=== PATIENT | male | born 1965 | race Two or more races ===

== ENCOUNTER → 2023-12-28 | Outpatient (CLI) | payer MEDICAID, SELFPAY | END | disposition home or self-care (01) | LOC: SWHD 10:20 | PROVIDERS: PCP Physician Assistant; Referring Provider Physician Assistant; Visit Provider Surgery | DX: L97.822 Non-pressure chronic ulcer of other part of left lower leg with fat layer exposed (principal); S98.112D Complete traumatic amputation of left great toe, subsequent encounter; X58.XXXD Exposure to other specified factors, subsequent encounter; E11.51 Type 2 diabetes mellitus with diabetic peripheral angiopathy without gangrene; I10 Essential (primary) hypertension; Z79.84 Long term (current) use of oral hypoglycemic drugs; Z89.412 Acquired absence of left great toe; Z99.3 Dependence on wheelchair; I73.9 Peripheral vascular disease, unspecified | CPT/HCPCS: 11042; A9270 ==

== ENCOUNTER → 2024-01-04 | Outpatient (CLI) | payer MEDICAID, SELFPAY | END | disposition home or self-care (01) | LOC: SWHD 10:41 | PROVIDERS: PCP Physician Assistant; Referring Provider Physician Assistant; Visit Provider Student in an Organized Health Care Education/Training Program | DX: L97.822 Non-pressure chronic ulcer of other part of left lower leg with fat layer exposed (principal); S98.112D Complete traumatic amputation of left great toe, subsequent encounter; X58.XXXD Exposure to other specified factors, subsequent encounter; E11.51 Type 2 diabetes mellitus with diabetic peripheral angiopathy without gangrene; I10 Essential (primary) hypertension; Z79.84 Long term (current) use of oral hypoglycemic drugs; Z89.412 Acquired absence of left great toe; Z99.3 Dependence on wheelchair; I73.9 Peripheral vascular disease, unspecified | CPT/HCPCS: 11042; A9270 ==

== ENCOUNTER → 2024-01-18 | Outpatient (CLI) | payer MEDICAID, SELFPAY | END | disposition home or self-care (01) | LOC: SWHD 10:06 | PROVIDERS: PCP Physician Assistant; Referring Provider Physician Assistant; Visit Provider Surgery | DX: L97.822 Non-pressure chronic ulcer of other part of left lower leg with fat layer exposed (principal); S98.112D Complete traumatic amputation of left great toe, subsequent encounter; X58.XXXD Exposure to other specified factors, subsequent encounter; E11.51 Type 2 diabetes mellitus with diabetic peripheral angiopathy without gangrene; I10 Essential (primary) hypertension; Z79.84 Long term (current) use of oral hypoglycemic drugs; Z89.412 Acquired absence of left great toe; Z99.3 Dependence on wheelchair; I73.9 Peripheral vascular disease, unspecified | CPT/HCPCS: 11042; A9270 ==

== ENCOUNTER → 2024-02-01 | Outpatient (CLI) | payer MEDICAID, SELFPAY | END | disposition home or self-care (01) | LOC: SWHD 08:55 | PROVIDERS: PCP Physician Assistant; Referring Provider Physician Assistant; Visit Provider Surgery | DX: L97.822 Non-pressure chronic ulcer of other part of left lower leg with fat layer exposed (principal); S98.112D Complete traumatic amputation of left great toe, subsequent encounter; X58.XXXD Exposure to other specified factors, subsequent encounter; E11.51 Type 2 diabetes mellitus with diabetic peripheral angiopathy without gangrene; I10 Essential (primary) hypertension; Z79.84 Long term (current) use of oral hypoglycemic drugs; Z89.412 Acquired absence of left great toe; Z99.3 Dependence on wheelchair; I73.9 Peripheral vascular disease, unspecified | CPT/HCPCS: 11042; A9270 ==

== ENCOUNTER → 2024-02-15 | Outpatient (CLI) | payer MEDICAID, SELFPAY | END | disposition home or self-care (01) | LOC: SWHD 08:52 | PROVIDERS: PCP Physician Assistant; Referring Provider Physician Assistant; Visit Provider Student in an Organized Health Care Education/Training Program | DX: L97.822 Non-pressure chronic ulcer of other part of left lower leg with fat layer exposed (principal); S98.112D Complete traumatic amputation of left great toe, subsequent encounter; X58.XXXD Exposure to other specified factors, subsequent encounter; E11.51 Type 2 diabetes mellitus with diabetic peripheral angiopathy without gangrene; I10 Essential (primary) hypertension; Z79.84 Long term (current) use of oral hypoglycemic drugs; Z89.412 Acquired absence of left great toe; Z99.3 Dependence on wheelchair; I73.9 Peripheral vascular disease, unspecified | CPT/HCPCS: 97597; A9270 ==

== ENCOUNTER → 2024-02-29 | Outpatient (CLI) | payer MEDICAID, SELFPAY | END | disposition home or self-care (01) | LOC: SWHD 08:51 | PROVIDERS: PCP Physician Assistant; Referring Provider Physician Assistant; Visit Provider Student in an Organized Health Care Education/Training Program | DX: L97.822 Non-pressure chronic ulcer of other part of left lower leg with fat layer exposed (principal); S98.112D Complete traumatic amputation of left great toe, subsequent encounter; X58.XXXD Exposure to other specified factors, subsequent encounter; E11.51 Type 2 diabetes mellitus with diabetic peripheral angiopathy without gangrene; I10 Essential (primary) hypertension; Z79.84 Long term (current) use of oral hypoglycemic drugs; Z89.412 Acquired absence of left great toe; Z99.3 Dependence on wheelchair; I73.9 Peripheral vascular disease, unspecified | CPT/HCPCS: 11042; 15271; A9270 ==

== ENCOUNTER → 2024-03-07 | Outpatient (CLI) | payer MEDICAID, SELFPAY | END | disposition home or self-care (01) | LOC: SWHD 08:50 | PROVIDERS: PCP Physician Assistant; Referring Provider Physician Assistant; Visit Provider Surgery | DX: L97.822 Non-pressure chronic ulcer of other part of left lower leg with fat layer exposed (principal); S98.112D Complete traumatic amputation of left great toe, subsequent encounter; X58.XXXD Exposure to other specified factors, subsequent encounter; E11.52 Type 2 diabetes mellitus with diabetic peripheral angiopathy with gangrene; I10 Essential (primary) hypertension; Z79.84 Long term (current) use of oral hypoglycemic drugs; Z89.412 Acquired absence of left great toe; Z99.3 Dependence on wheelchair; I73.89 Other specified peripheral vascular diseases | CPT/HCPCS: 99213; A9270; G0463 ==

== ENCOUNTER → 2024-03-14 | Outpatient (CLI) | payer MEDICAID, SELFPAY | END | disposition home or self-care (01) | LOC: SWHD 09:10 | PROVIDERS: PCP Physician Assistant; Referring Provider Physician Assistant; Visit Provider Surgery | DX: L97.822 Non-pressure chronic ulcer of other part of left lower leg with fat layer exposed (principal); S98.112D Complete traumatic amputation of left great toe, subsequent encounter; X58.XXXD Exposure to other specified factors, subsequent encounter; E11.52 Type 2 diabetes mellitus with diabetic peripheral angiopathy with gangrene; I10 Essential (primary) hypertension; Z79.84 Long term (current) use of oral hypoglycemic drugs; Z89.412 Acquired absence of left great toe; Z99.3 Dependence on wheelchair; I73.89 Other specified peripheral vascular diseases | CPT/HCPCS: 99213; A9270; G0463 ==

== ENCOUNTER → 2024-03-21 | Outpatient (CLI) | payer MEDICAID, SELFPAY | END | disposition home or self-care (01) | LOC: SWHD 09:45 | PROVIDERS: PCP Physician Assistant; Referring Provider Physician Assistant; Visit Provider Physician Assistant | DX: L97.822 Non-pressure chronic ulcer of other part of left lower leg with fat layer exposed (principal); S98.112D Complete traumatic amputation of left great toe, subsequent encounter; X58.XXXD Exposure to other specified factors, subsequent encounter; E11.52 Type 2 diabetes mellitus with diabetic peripheral angiopathy with gangrene; I10 Essential (primary) hypertension; Z79.84 Long term (current) use of oral hypoglycemic drugs; Z89.412 Acquired absence of left great toe; Z99.3 Dependence on wheelchair | CPT/HCPCS: 97597; A9270 ==

== ENCOUNTER → 2024-04-02 | Outpatient (CLI) | payer MEDICAID, SELFPAY | END | disposition home or self-care (01) | PROVIDERS: PCP Physician Assistant; Referring Provider Physician Assistant; Visit Provider Student in an Organized Health Care Education/Training Program | DX: L97.822 Non-pressure chronic ulcer of other part of left lower leg with fat layer exposed (principal); S98.112D Complete traumatic amputation of left great toe, subsequent encounter; X58.XXXD Exposure to other specified factors, subsequent encounter; E11.52 Type 2 diabetes mellitus with diabetic peripheral angiopathy with gangrene; I10 Essential (primary) hypertension; Z79.84 Long term (current) use of oral hypoglycemic drugs; Z89.412 Acquired absence of left great toe; Z99.3 Dependence on wheelchair | CPT/HCPCS: 97597; A9270 ==

== ENCOUNTER → 2024-04-09 | Outpatient (CLI) | payer MEDICAID, SELFPAY | END | disposition home or self-care (01) | PROVIDERS: PCP Physician Assistant; Referring Provider Physician Assistant; Visit Provider Student in an Organized Health Care Education/Training Program | DX: L97.822 Non-pressure chronic ulcer of other part of left lower leg with fat layer exposed (principal); S98.112D Complete traumatic amputation of left great toe, subsequent encounter; X58.XXXD Exposure to other specified factors, subsequent encounter; E11.52 Type 2 diabetes mellitus with diabetic peripheral angiopathy with gangrene; I10 Essential (primary) hypertension; Z79.84 Long term (current) use of oral hypoglycemic drugs; Z89.412 Acquired absence of left great toe; Z99.3 Dependence on wheelchair | CPT/HCPCS: 99213; A9270; G0463 ==

== ENCOUNTER → 2024-04-18 | Outpatient (CLI) | payer MEDICAID, SELFPAY | END | disposition home or self-care (01) | LOC: SWHD 10:47 | PROVIDERS: PCP Physician Assistant; Referring Provider Physician Assistant; Visit Provider Physician Assistant | DX: L97.822 Non-pressure chronic ulcer of other part of left lower leg with fat layer exposed (principal); S98.112D Complete traumatic amputation of left great toe, subsequent encounter; X58.XXXD Exposure to other specified factors, subsequent encounter; E11.52 Type 2 diabetes mellitus with diabetic peripheral angiopathy with gangrene; I10 Essential (primary) hypertension; Z79.84 Long term (current) use of oral hypoglycemic drugs; Z89.412 Acquired absence of left great toe; Z99.3 Dependence on wheelchair | CPT/HCPCS: 11042; A9270 ==

== ENCOUNTER → 2024-05-02 | Outpatient (CLI) | payer MEDICARE, MEDICAID, SELFPAY | END | disposition home or self-care (01) | PROVIDERS: PCP Physician Assistant; Referring Provider Physician Assistant; Visit Provider Surgery | DX: L97.822 Non-pressure chronic ulcer of other part of left lower leg with fat layer exposed (principal); S98.112D Complete traumatic amputation of left great toe, subsequent encounter; X58.XXXD Exposure to other specified factors, subsequent encounter; E11.52 Type 2 diabetes mellitus with diabetic peripheral angiopathy with gangrene; I10 Essential (primary) hypertension; Z79.84 Long term (current) use of oral hypoglycemic drugs; Z89.412 Acquired absence of left great toe; Z99.3 Dependence on wheelchair | CPT/HCPCS: 97597; 11042; A9270 ==

== ENCOUNTER → 2024-05-09 | Outpatient (CLI) | payer MEDICARE, MEDICAID, SELFPAY | END | disposition home or self-care (01) | PROVIDERS: PCP Physician Assistant; Referring Provider Physician Assistant; Visit Provider Surgery | DX: L97.822 Non-pressure chronic ulcer of other part of left lower leg with fat layer exposed (principal); S98.112D Complete traumatic amputation of left great toe, subsequent encounter; X58.XXXD Exposure to other specified factors, subsequent encounter; E11.52 Type 2 diabetes mellitus with diabetic peripheral angiopathy with gangrene; I10 Essential (primary) hypertension; Z79.84 Long term (current) use of oral hypoglycemic drugs; Z89.412 Acquired absence of left great toe; Z99.3 Dependence on wheelchair | CPT/HCPCS: 11042; A9270 ==

== ENCOUNTER → 2024-05-16 | Outpatient (CLI) | payer MEDICARE, MEDICAID, SELFPAY | END | disposition home or self-care (01) | LOC: SWHD 11:10 | PROVIDERS: PCP Physician Assistant; Referring Provider Physician Assistant; Visit Provider Surgery | DX: L97.822 Non-pressure chronic ulcer of other part of left lower leg with fat layer exposed (principal); S98.112D Complete traumatic amputation of left great toe, subsequent encounter; X58.XXXD Exposure to other specified factors, subsequent encounter; E11.52 Type 2 diabetes mellitus with diabetic peripheral angiopathy with gangrene; I10 Essential (primary) hypertension; Z79.84 Long term (current) use of oral hypoglycemic drugs; Z89.412 Acquired absence of left great toe; Z99.3 Dependence on wheelchair; I73.9 Peripheral vascular disease, unspecified | CPT/HCPCS: 97597; A9270 ==

== ENCOUNTER → 2024-05-23 | Outpatient (CLI) | payer MEDICARE, MEDICAID, SELFPAY | END | disposition home or self-care (01) | LOC: SWHD 11:07 | PROVIDERS: PCP Physician Assistant; Referring Provider Physician Assistant; Visit Provider Student in an Organized Health Care Education/Training Program | DX: L97.822 Non-pressure chronic ulcer of other part of left lower leg with fat layer exposed (principal); S98.112D Complete traumatic amputation of left great toe, subsequent encounter; X58.XXXD Exposure to other specified factors, subsequent encounter; E11.52 Type 2 diabetes mellitus with diabetic peripheral angiopathy with gangrene; I10 Essential (primary) hypertension; Z79.84 Long term (current) use of oral hypoglycemic drugs; Z89.412 Acquired absence of left great toe; Z99.3 Dependence on wheelchair; I73.9 Peripheral vascular disease, unspecified | CPT/HCPCS: 97597; A9270 ==

== ENCOUNTER → 2024-05-30 | Outpatient (CLI) | payer MEDICARE, MEDICAID, SELFPAY | END | disposition home or self-care (01) | LOC: SWHD 10:50 | PROVIDERS: PCP Physician Assistant; Referring Provider Physician Assistant; Visit Provider Physician Assistant | DX: L97.822 Non-pressure chronic ulcer of other part of left lower leg with fat layer exposed (principal); S98.112D Complete traumatic amputation of left great toe, subsequent encounter; X58.XXXD Exposure to other specified factors, subsequent encounter; E11.52 Type 2 diabetes mellitus with diabetic peripheral angiopathy with gangrene; I10 Essential (primary) hypertension; Z79.84 Long term (current) use of oral hypoglycemic drugs; Z89.412 Acquired absence of left great toe; Z99.3 Dependence on wheelchair; I73.9 Peripheral vascular disease, unspecified | CPT/HCPCS: 99213; A9270; G0463 ==

== ENCOUNTER → 2024-06-06 | Outpatient (CLI) | payer MEDICARE, MEDICAID, SELFPAY | END | disposition home or self-care (01) | LOC: SWHD 10:54 | PROVIDERS: PCP Physician Assistant; Referring Provider Physician Assistant; Visit Provider Surgery | DX: E11.621 Type 2 diabetes mellitus with foot ulcer (principal); L97.522 Non-pressure chronic ulcer of other part of left foot with fat layer exposed; S98.112D Complete traumatic amputation of left great toe, subsequent encounter; X58.XXXD Exposure to other specified factors, subsequent encounter; E11.52 Type 2 diabetes mellitus with diabetic peripheral angiopathy with gangrene; I10 Essential (primary) hypertension; Z79.84 Long term (current) use of oral hypoglycemic drugs; Z89.412 Acquired absence of left great toe; Z99.3 Dependence on wheelchair; I73.9 Peripheral vascular disease, unspecified; R60.0 Localized edema; M86.8X7 Other osteomyelitis, ankle and foot | CPT/HCPCS: 99213; A9270; G0463 ==

== ENCOUNTER → 2024-06-13 | Outpatient (CLI) | payer MEDICARE, MEDICAID, SELFPAY | END | disposition home or self-care (01) | LOC: SWHD 11:00 | PROVIDERS: PCP Physician Assistant; Referring Provider Physician Assistant; Visit Provider Physician Assistant | DX: E11.621 Type 2 diabetes mellitus with foot ulcer (principal); L97.522 Non-pressure chronic ulcer of other part of left foot with fat layer exposed; S98.112D Complete traumatic amputation of left great toe, subsequent encounter; X58.XXXD Exposure to other specified factors, subsequent encounter; E11.52 Type 2 diabetes mellitus with diabetic peripheral angiopathy with gangrene; I10 Essential (primary) hypertension; Z79.84 Long term (current) use of oral hypoglycemic drugs; Z89.412 Acquired absence of left great toe; Z99.3 Dependence on wheelchair; I73.9 Peripheral vascular disease, unspecified; M86.8X7 Other osteomyelitis, ankle and foot | CPT/HCPCS: 17250; A9270 ==

== ENCOUNTER → 2024-06-20 | Outpatient (CLI) | payer MEDICARE, MEDICAID, SELFPAY | END | disposition home or self-care (01) | LOC: SWHD 13:08 | PROVIDERS: PCP Physician Assistant; Referring Provider Physician Assistant; Visit Provider Surgery | DX: L97.521 Non-pressure chronic ulcer of other part of left foot limited to breakdown of skin (principal); S98.112D Complete traumatic amputation of left great toe, subsequent encounter; X58.XXXD Exposure to other specified factors, subsequent encounter; R60.0 Localized edema; E11.52 Type 2 diabetes mellitus with diabetic peripheral angiopathy with gangrene; I10 Essential (primary) hypertension; Z79.84 Long term (current) use of oral hypoglycemic drugs; Z89.412 Acquired absence of left great toe; Z99.3 Dependence on wheelchair; I73.9 Peripheral vascular disease, unspecified; M86.8X7 Other osteomyelitis, ankle and foot | CPT/HCPCS: 97597; A9270 ==

== ENCOUNTER → 2024-06-27 | Outpatient (CLI) | payer MEDICARE, MEDICAID, SELFPAY | END | disposition home or self-care (01) | LOC: SWHD 11:09 | PROVIDERS: PCP Physician Assistant; Referring Provider Physician Assistant; Visit Provider Surgery | DX: E11.621 Type 2 diabetes mellitus with foot ulcer (principal); L97.522 Non-pressure chronic ulcer of other part of left foot with fat layer exposed; S98.112D Complete traumatic amputation of left great toe, subsequent encounter; X58.XXXD Exposure to other specified factors, subsequent encounter; R60.0 Localized edema; E11.52 Type 2 diabetes mellitus with diabetic peripheral angiopathy with gangrene; I10 Essential (primary) hypertension; Z79.84 Long term (current) use of oral hypoglycemic drugs; Z99.3 Dependence on wheelchair; I73.9 Peripheral vascular disease, unspecified; M86.8X7 Other osteomyelitis, ankle and foot | CPT/HCPCS: 11042 ×2; A9270 ==

== ENCOUNTER → 2024-07-04 | Outpatient (CLI) | payer MEDICARE, MEDICAID, SELFPAY | END | disposition home or self-care (01) | PROVIDERS: PCP Physician Assistant; Referring Provider Physician Assistant; Visit Provider Surgery | DX: E11.621 Type 2 diabetes mellitus with foot ulcer (principal); L97.522 Non-pressure chronic ulcer of other part of left foot with fat layer exposed; S98.112D Complete traumatic amputation of left great toe, subsequent encounter; X58.XXXD Exposure to other specified factors, subsequent encounter; R60.0 Localized edema; E11.52 Type 2 diabetes mellitus with diabetic peripheral angiopathy with gangrene; I10 Essential (primary) hypertension; Z79.84 Long term (current) use of oral hypoglycemic drugs; Z99.3 Dependence on wheelchair; I73.9 Peripheral vascular disease, unspecified; M86.8X7 Other osteomyelitis, ankle and foot | CPT/HCPCS: 11042; A9270 ==

== ENCOUNTER → 2024-07-04 | Outpatient (CLI) | payer MEDICARE, MEDICAID, SELFPAY ==
[2024-07-04 14:06] LABS: Anion Gap 10 (7-16); BUN/Creatinine Ratio 25 Ratio (12-20); Blood Urea Nitrogen 33 mg/dL (9-23); Calcium 9.2 mg/dL (8.3-10.6); Carbon Dioxide 20.8 mMol/L (20.0-31.0); Chloride 108 mMol/L (98-107); Creatinine (Component) 1.3 mg/dL (0.6-1.3); Glucose 105 mg/dL (74-106); Osmolality,Calculated 284 (275-295); Potassium 4.9 mMol/L (3.4-5.1); Sodium 139 mMol/L (136-145); eGFR > 60 See Note
== END | disposition home or self-care (01) ==
PROVIDERS: PCP Physician Assistant; Referring Provider Surgery; Visit Provider Surgery
DX: E11.621 Type 2 diabetes mellitus with foot ulcer (principal)
CPT/HCPCS: 36415; 80048

== ENCOUNTER → 2024-07-08 | Outpatient (CLI) | payer MEDICARE, MEDICAID, SELFPAY ==
--- NOTE | 2024-07-08 14:28 | XR_ITS ---
Examination: MRI foot with intravenous contrast TECHNIQUE: Coronal/sagittal MRI foot images post intravenous administration 14 cc gadolinium INDICATIONS: Left foot pain 2 years Examination type: July 08, 2024 1750 hours FINDINGS: Detail on the postcontrast images is very poor No fracture No david cortical bone destruction First ray amputation at the level of the distal first metatarsal No david cortical bone destruction No enhancing soft tissue abscess Diffuse edema in the dorsum of the foot IMPRESSION: Technically limited study Recommend this patient return for MRI foot images without intravenous contrast follow-up
== END | disposition home or self-care (01) ==
LOC: SMRI 14:16
PROVIDERS: PCP Physician Assistant; Referring Provider Physician Assistant; Visit Provider Physician Assistant
DX: E11.621 Type 2 diabetes mellitus with foot ulcer (principal); M86.472 Chronic osteomyelitis with draining sinus, left ankle and foot
CPT/HCPCS: 73719; A9579

== ENCOUNTER → 2024-07-11 | Outpatient (CLI) | payer MEDICARE, MEDICAID, SELFPAY | END | disposition home or self-care (01) | LOC: SWHD 10:03 | PROVIDERS: PCP Physician Assistant; Referring Provider Physician Assistant; Visit Provider Physician Assistant | DX: E11.621 Type 2 diabetes mellitus with foot ulcer (principal); L97.522 Non-pressure chronic ulcer of other part of left foot with fat layer exposed; S98.112D Complete traumatic amputation of left great toe, subsequent encounter; X58.XXXD Exposure to other specified factors, subsequent encounter; R60.0 Localized edema; E11.52 Type 2 diabetes mellitus with diabetic peripheral angiopathy with gangrene; I10 Essential (primary) hypertension; Z79.84 Long term (current) use of oral hypoglycemic drugs; Z99.3 Dependence on wheelchair; I73.9 Peripheral vascular disease, unspecified; M86.8X7 Other osteomyelitis, ankle and foot | CPT/HCPCS: 99213; A9270; G0463 ==

== ENCOUNTER → 2024-07-18 | Outpatient (CLI) | payer MEDICARE, MEDICAID, SELFPAY | END | disposition home or self-care (01) | LOC: SWHD 11:02 | PROVIDERS: PCP Physician Assistant; Referring Provider Physician Assistant; Visit Provider Student in an Organized Health Care Education/Training Program | DX: E11.621 Type 2 diabetes mellitus with foot ulcer (principal); L97.522 Non-pressure chronic ulcer of other part of left foot with fat layer exposed; S98.112D Complete traumatic amputation of left great toe, subsequent encounter; X58.XXXD Exposure to other specified factors, subsequent encounter; R60.0 Localized edema; E11.52 Type 2 diabetes mellitus with diabetic peripheral angiopathy with gangrene; I10 Essential (primary) hypertension; Z79.84 Long term (current) use of oral hypoglycemic drugs; Z99.3 Dependence on wheelchair; I73.9 Peripheral vascular disease, unspecified; M86.8X7 Other osteomyelitis, ankle and foot | CPT/HCPCS: 97597; A9270 ==

== ENCOUNTER → 2024-07-25 | Outpatient (CLI) | payer MEDICARE, MEDICAID, SELFPAY | END | disposition home or self-care (01) | LOC: SWHD 11:01 | PROVIDERS: PCP Physician Assistant; Referring Provider Physician Assistant; Visit Provider Surgery | DX: E11.621 Type 2 diabetes mellitus with foot ulcer (principal); L97.522 Non-pressure chronic ulcer of other part of left foot with fat layer exposed; S98.112D Complete traumatic amputation of left great toe, subsequent encounter; X58.XXXD Exposure to other specified factors, subsequent encounter; R60.0 Localized edema; E11.52 Type 2 diabetes mellitus with diabetic peripheral angiopathy with gangrene; I10 Essential (primary) hypertension; Z79.84 Long term (current) use of oral hypoglycemic drugs; I73.9 Peripheral vascular disease, unspecified; M86.8X7 Other osteomyelitis, ankle and foot | CPT/HCPCS: 11042; A9270 ==

== ENCOUNTER → 2024-08-01 | Outpatient (CLI) | payer MEDICARE, MEDICAID, SELFPAY | END | disposition home or self-care (01) | LOC: SWHD 13:38 | PROVIDERS: PCP Physician Assistant; Referring Provider Physician Assistant; Visit Provider Surgery | DX: E11.621 Type 2 diabetes mellitus with foot ulcer (principal); L97.522 Non-pressure chronic ulcer of other part of left foot with fat layer exposed; S98.112D Complete traumatic amputation of left great toe, subsequent encounter; X58.XXXD Exposure to other specified factors, subsequent encounter; R60.0 Localized edema; E11.52 Type 2 diabetes mellitus with diabetic peripheral angiopathy with gangrene; I10 Essential (primary) hypertension; Z79.84 Long term (current) use of oral hypoglycemic drugs; Z99.3 Dependence on wheelchair; I73.9 Peripheral vascular disease, unspecified; M86.8X7 Other osteomyelitis, ankle and foot | CPT/HCPCS: 11042; A9270 ==

== ENCOUNTER → 2024-08-06 | Outpatient (CLI) | payer MEDICARE, MEDICAID, SELFPAY ==
--- NOTE | 2024-08-06 10:15 | XR_ITS ---
Examination: MRI left foot, without contrast Date and time of exam: August 06, 2024, 1108 hours Comparison July 08, 2024 INDICATIONS: History removal toes 2 years ago, continues swelling discharge numbness stiffness, diagnosis type 2 diabetes with foot ulcer chronic osteomyelitis draining sinus left ankle and foot months Technique: Multiple axial sagittal and coronal images of the left foot have been obtained with the Siemens high-resolution 1.5 [employer] MRI scanner. Images obtained include T2-weighted fat-suppressed sagittal sections, TR 3500, TE 46, T2 weighted coronal fat suppressed images, TR 3050, TE 84, T2-weighted transverse fat suppressed images, TR 3260, TE 63, proton density transverse images, TR 4720 TE 46, and T1 weighted coronal images, TR 560, TE 13. Findings: Amputations distal first metatarsal, second digit Soft tissue swelling about the third digit with early cortical bone destruction involving the distal phalanx third digit No soft tissue abscess IMPRESSION: Suspicious for early osteomyelitis distal phalanx third digit No soft tissue abscess Recommend correlation with plain films left foot
== END | disposition home or self-care (01) ==
LOC: SMRI 10:13
PROVIDERS: PCP Physician Assistant; Referring Provider Physician Assistant; Visit Provider Physician Assistant
DX: E11.621 Type 2 diabetes mellitus with foot ulcer (principal)
CPT/HCPCS: 73718

== ENCOUNTER → 2024-08-08 | Outpatient (CLI) | payer MEDICARE, MEDICAID, SELFPAY | END | disposition home or self-care (01) | LOC: SWHD 14:06 | PROVIDERS: PCP Physician Assistant; Referring Provider Physician Assistant; Visit Provider Physician Assistant | DX: E11.621 Type 2 diabetes mellitus with foot ulcer (principal); L97.522 Non-pressure chronic ulcer of other part of left foot with fat layer exposed; S98.112D Complete traumatic amputation of left great toe, subsequent encounter; X58.XXXD Exposure to other specified factors, subsequent encounter; R60.0 Localized edema; E11.52 Type 2 diabetes mellitus with diabetic peripheral angiopathy with gangrene; I10 Essential (primary) hypertension; Z79.84 Long term (current) use of oral hypoglycemic drugs; Z99.3 Dependence on wheelchair; M86.8X7 Other osteomyelitis, ankle and foot | CPT/HCPCS: 99213; A9270; G0463 ==

== ENCOUNTER → 2024-08-22 | Outpatient (CLI) | payer MEDICARE, MEDICAID, SELFPAY | END | disposition home or self-care (01) | LOC: SWHD 10:51 | PROVIDERS: PCP Physician Assistant; Referring Provider Physician Assistant; Visit Provider Surgery | DX: E11.621 Type 2 diabetes mellitus with foot ulcer (principal); L97.526 Non-pressure chronic ulcer of other part of left foot with bone involvement without evidence of necrosis; S98.112D Complete traumatic amputation of left great toe, subsequent encounter; X58.XXXD Exposure to other specified factors, subsequent encounter; R60.0 Localized edema; E11.52 Type 2 diabetes mellitus with diabetic peripheral angiopathy with gangrene; I10 Essential (primary) hypertension; Z79.84 Long term (current) use of oral hypoglycemic drugs; Z99.3 Dependence on wheelchair; I73.9 Peripheral vascular disease, unspecified; M86.8X7 Other osteomyelitis, ankle and foot | CPT/HCPCS: 11042; A9270 ==

== ENCOUNTER → 2024-09-12 | Outpatient (CLI) | payer MEDICARE, MEDICAID, SELFPAY | END | disposition home or self-care (01) | LOC: SWHD 15:00 | PROVIDERS: PCP Physician Assistant; Referring Provider Physician Assistant; Visit Provider Surgery | DX: E11.621 Type 2 diabetes mellitus with foot ulcer (principal); L97.522 Non-pressure chronic ulcer of other part of left foot with fat layer exposed; S98.112D Complete traumatic amputation of left great toe, subsequent encounter; X58.XXXD Exposure to other specified factors, subsequent encounter; R60.0 Localized edema; E11.52 Type 2 diabetes mellitus with diabetic peripheral angiopathy with gangrene; I10 Essential (primary) hypertension; Z79.84 Long term (current) use of oral hypoglycemic drugs; Z99.3 Dependence on wheelchair; M86.8X7 Other osteomyelitis, ankle and foot | CPT/HCPCS: 11042; A9270 ==

== ENCOUNTER → 2024-09-26 | Outpatient (CLI) | payer MEDICARE, MEDICAID, SELFPAY | END | disposition home or self-care (01) | LOC: SWHD 15:47 | PROVIDERS: PCP Physician Assistant; Referring Provider Physician Assistant; Visit Provider Physician Assistant | DX: E11.621 Type 2 diabetes mellitus with foot ulcer (principal); L97.522 Non-pressure chronic ulcer of other part of left foot with fat layer exposed; S98.112D Complete traumatic amputation of left great toe, subsequent encounter; X58.XXXD Exposure to other specified factors, subsequent encounter; R60.0 Localized edema; E11.52 Type 2 diabetes mellitus with diabetic peripheral angiopathy with gangrene; I10 Essential (primary) hypertension; Z79.84 Long term (current) use of oral hypoglycemic drugs; Z99.3 Dependence on wheelchair; M86.8X7 Other osteomyelitis, ankle and foot | CPT/HCPCS: 17250; A9270 ==

== ENCOUNTER → 2024-10-03 | Outpatient (CLI) | payer MEDICARE, MEDICAID, SELFPAY | END | disposition home or self-care (01) | LOC: SWHD 09:34 | PROVIDERS: PCP Physician Assistant; Referring Provider Physician Assistant; Visit Provider Student in an Organized Health Care Education/Training Program | DX: E11.621 Type 2 diabetes mellitus with foot ulcer (principal); L97.522 Non-pressure chronic ulcer of other part of left foot with fat layer exposed; S98.112D Complete traumatic amputation of left great toe, subsequent encounter; X58.XXXD Exposure to other specified factors, subsequent encounter; R60.0 Localized edema; E11.52 Type 2 diabetes mellitus with diabetic peripheral angiopathy with gangrene; I10 Essential (primary) hypertension; Z79.84 Long term (current) use of oral hypoglycemic drugs; Z99.3 Dependence on wheelchair; M86.8X7 Other osteomyelitis, ankle and foot | CPT/HCPCS: 11042; A9270 ==

== ENCOUNTER → 2024-10-17 | Outpatient (CLI) | payer MEDICARE, MEDICAID, SELFPAY | END | disposition home or self-care (01) | LOC: SWHD 09:55 | PROVIDERS: PCP Physician Assistant; Referring Provider Physician Assistant; Visit Provider Surgery | DX: E11.621 Type 2 diabetes mellitus with foot ulcer (principal); L97.522 Non-pressure chronic ulcer of other part of left foot with fat layer exposed; S98.112D Complete traumatic amputation of left great toe, subsequent encounter; X58.XXXD Exposure to other specified factors, subsequent encounter; R60.0 Localized edema; E11.52 Type 2 diabetes mellitus with diabetic peripheral angiopathy with gangrene | CPT/HCPCS: 11042; A9270 ==

== ENCOUNTER → 2024-10-31 | Outpatient (CLI) | payer MEDICARE, MEDICAID, SELFPAY | END | disposition home or self-care (01) | LOC: SWHD 10:23 | PROVIDERS: PCP Physician Assistant; Referring Provider Physician Assistant; Visit Provider Student in an Organized Health Care Education/Training Program | DX: E11.621 Type 2 diabetes mellitus with foot ulcer (principal); L97.522 Non-pressure chronic ulcer of other part of left foot with fat layer exposed; S98.112D Complete traumatic amputation of left great toe, subsequent encounter; X58.XXXD Exposure to other specified factors, subsequent encounter; R60.0 Localized edema; E11.52 Type 2 diabetes mellitus with diabetic peripheral angiopathy with gangrene | CPT/HCPCS: 97597; A9270 ==

== ENCOUNTER → 2024-11-14 | Outpatient (CLI) | payer MEDICARE, MEDICAID, SELFPAY | END | disposition home or self-care (01) | PROVIDERS: PCP Physician Assistant; Referring Provider Physician Assistant; Visit Provider Student in an Organized Health Care Education/Training Program | DX: E11.621 Type 2 diabetes mellitus with foot ulcer (principal); L97.522 Non-pressure chronic ulcer of other part of left foot with fat layer exposed; S98.112D Complete traumatic amputation of left great toe, subsequent encounter; X58.XXXD Exposure to other specified factors, subsequent encounter; E11.52 Type 2 diabetes mellitus with diabetic peripheral angiopathy with gangrene | CPT/HCPCS: 97597; A9270 ==

== ENCOUNTER → 2024-11-14 | Outpatient (CLI) | payer MEDICARE, MEDICAID, SELFPAY ==
--- NOTE | 2024-11-14 13:01 | XR_ITS ---
Examination: Toes, left foot 3 views Technique: Toes AP oblique lateral 3 views Date and time of exam: July, 1324 hours INDICATIONS: Osteomyelitis left foot history amputations left first and second digits 2 years ago FINDINGS: Severe osteopenia Suspicious for early cortical bone destruction involving the distal second metatarsal Prominent osteopenia IMPRESSION: Consider repeat MRI foot without contrast follow-up to confirm early osteomyelitis distal second metatarsal
== END | disposition home or self-care (01) ==
PROVIDERS: PCP Physician Assistant; Referring Provider Student in an Organized Health Care Education/Training Program; Visit Provider Radiology Diagnostic Radiology
DX: E11.621 Type 2 diabetes mellitus with foot ulcer (principal); M86.472 Chronic osteomyelitis with draining sinus, left ankle and foot
CPT/HCPCS: 73660

== ENCOUNTER → 2024-11-21 | Outpatient (CLI) | payer MEDICARE, MEDICAID, SELFPAY | END | disposition home or self-care (01) | LOC: SWHD 11:06 | PROVIDERS: PCP Physician Assistant; Referring Provider Physician Assistant; Visit Provider Surgery | DX: E11.621 Type 2 diabetes mellitus with foot ulcer (principal); L97.526 Non-pressure chronic ulcer of other part of left foot with bone involvement without evidence of necrosis; S98.112D Complete traumatic amputation of left great toe, subsequent encounter; X58.XXXD Exposure to other specified factors, subsequent encounter; R60.0 Localized edema; E11.52 Type 2 diabetes mellitus with diabetic peripheral angiopathy with gangrene | CPT/HCPCS: 11042; A9270 ==

== ENCOUNTER → 2024-12-05 | Outpatient (CLI) | payer MEDICARE, MEDICAID, SELFPAY | END | disposition home or self-care (01) | LOC: SWHD 11:04 | PROVIDERS: PCP Physician Assistant; Referring Provider Physician Assistant; Visit Provider Surgery | DX: E11.621 Type 2 diabetes mellitus with foot ulcer (principal); L97.522 Non-pressure chronic ulcer of other part of left foot with fat layer exposed; S98.112D Complete traumatic amputation of left great toe, subsequent encounter; X58.XXXD Exposure to other specified factors, subsequent encounter; R60.0 Localized edema; E11.52 Type 2 diabetes mellitus with diabetic peripheral angiopathy with gangrene | CPT/HCPCS: 11042; A9270 ==

== ENCOUNTER 2024-12-11 11:36 | Outpatient (RCR) | payer MEDICARE, MEDICAID, SELFPAY | END 2024-12-12 23:59 | disposition home or self-care (01) | LOC: SWHD 11:36 | PROVIDERS: PCP Physician Assistant; Referring Provider Physician Assistant; Visit Provider Student in an Organized Health Care Education/Training Program | DX: E11.621 Type 2 diabetes mellitus with foot ulcer (principal); L97.522 Non-pressure chronic ulcer of other part of left foot with fat layer exposed; S98.112D Complete traumatic amputation of left great toe, subsequent encounter; X58.XXXD Exposure to other specified factors, subsequent encounter; E11.52 Type 2 diabetes mellitus with diabetic peripheral angiopathy with gangrene | CPT/HCPCS: 82962; G0277 ==

== ENCOUNTER 2025-01-07 07:55 | Outpatient (RCR) | payer MEDICARE, MEDICAID, SELFPAY | END 2025-01-11 23:59 | disposition home or self-care (01) | LOC: SWHD 07:55 | PROVIDERS: PCP Physician Assistant; Referring Provider Physician Assistant; Visit Provider Student in an Organized Health Care Education/Training Program | DX: E11.621 Type 2 diabetes mellitus with foot ulcer (principal); L97.522 Non-pressure chronic ulcer of other part of left foot with fat layer exposed; S98.112D Complete traumatic amputation of left great toe, subsequent encounter; X58.XXXD Exposure to other specified factors, subsequent encounter; E11.52 Type 2 diabetes mellitus with diabetic peripheral angiopathy with gangrene | CPT/HCPCS: 97597 ×5; 82962; A9270; G0277 ==

== ENCOUNTER 2025-02-02 14:38 | Outpatient (RCR) | payer MEDICARE, MEDICAID, SELFPAY | END 2025-02-11 23:59 | disposition home or self-care (01) | LOC: SWHD 14:38 | PROVIDERS: PCP Physician Assistant; Referring Provider Physician Assistant; Visit Provider Surgery | DX: E11.621 Type 2 diabetes mellitus with foot ulcer (principal); L97.522 Non-pressure chronic ulcer of other part of left foot with fat layer exposed; S98.112D Complete traumatic amputation of left great toe, subsequent encounter; X58.XXXD Exposure to other specified factors, subsequent encounter; E11.52 Type 2 diabetes mellitus with diabetic peripheral angiopathy with gangrene | CPT/HCPCS: 11042; 82962; A9270; G0277 ==

== ENCOUNTER → 2025-02-09 | Outpatient (CLI) | payer MEDICARE, MEDICAID, SELFPAY | END | disposition home or self-care (01) | LOC: SWHD 14:22 | PROVIDERS: PCP Physician Assistant; Referring Provider Physician Assistant; Visit Provider Student in an Organized Health Care Education/Training Program | DX: E11.621 Type 2 diabetes mellitus with foot ulcer (principal); S98.112D Complete traumatic amputation of left great toe, subsequent encounter; X58.XXXD Exposure to other specified factors, subsequent encounter; E11.52 Type 2 diabetes mellitus with diabetic peripheral angiopathy with gangrene; L97.522 Non-pressure chronic ulcer of other part of left foot with fat layer exposed | CPT/HCPCS: 97597; A9270 ==